=== PATIENT | male | born 2000 | race Hispanic/Latino ===

== ENCOUNTER 2024-12-01 03:27 | Emergency (ER) | payer OTHER ==
[~2024-12-01] VITALS: Ht 182.9 cm; Wt 124.7 kg
[2024-12-01 03:35] VITALS: TEMP 98.1
[2024-12-01] MEDS: KETOROLAC TROMETHAMINE 30 MG/ML VIAL IV STA (03:51)
[2024-12-01] MEDS: DICYCLOMINE HCL 20 MG/2 ML VIAL IM ONE (03:51)
[2024-12-01] MEDS: ONDANSETRON HCL INJ 2MG/ML 2ML 2 MG/ML VIAL IV STA (03:51)
[2024-12-01] MEDS: SODIUM CHLORIDE 0.9% 1000ML 1,000 ML IV ONE (03:52)
[2024-12-01 03:53] LABS: BASOPHILS % 0.6 % (0.0-1.0); EOSINOPHILS # (AUTO) 0.1 (0.0-0.4); EOSINOPHILS % 1.4 % (0.0-6.0); HEMATOCRIT 47.5 % (38.2-49.6); HEMOGLOBIN 16.2 g/dL (14.0-18.0); LYMPHOCYTES % 47.8 % (18.0-39.1); MEAN CORPUSCULAR HEMOGLOBIN 30.5 pg (28-32); MEAN CORPUSCULAR HGB CONC 34.1 g/dL (31-35); MEAN CORPUSCULAR VOLUME 89.5 fL (81-99); MONOCYTES # (AUTO) 0.5 (0.2-0.8); MONOCYTES % 8.2 % (4.4-11.3); NEUTROPHILS # (AUTO) 2.6 (2.1-6.9); NEUTROPHILS % 41.7 % (38.7-80.0); PLATELET COUNT 266 x10e3/uL (140-360); RED BLOOD COUNT 5.31 x10e6/uL (4.3-5.7); WHITE BLOOD COUNT 6.32 x10e3/uL (4.8-10.8)
[2024-12-01 04:07] VITALS: PULSE 78; RESP 18
[2024-12-01 04:18] LABS: ALBUMIN 4.2 g/dL (3.5-5.0); ALBUMIN/GLOBULIN RATIO 1.4 (0.8-2.0); ANION GAP 15.1 mmol/L (8-16); BILIRUBIN,TOTAL 0.5 mg/dL (0.2-1.2); CALCIUM 9.2 mg/dL (8.4-10.2); CREATININE, SERUM 0.65 mg/dL (0.72-1.25); POTASSIUM 4.1 mmol/L (3.5-5.1); TOTAL PROTEIN 7.2 g/dL (6.5-8.1)
[2024-12-01 04:24] LABS: CLARITY,URINE CLOUDY (CLEAR); COLOR,URINE YELLOW (YELLOW); PH,URINE 5.5 (5 - 7)
[2024-12-01 04:25] LABS: BILIRUBIN,URINE NEGATIVE (NEGATIVE); GLUCOSE, URINE NEGATIVE (NEGATIVE); KETONES,URINE NEGATIVE (NEGATIVE); LEUKOCYTE ESTERASE ,URINE NEGATIVE (NEGATIVE); NITRITE,URINE NEGATIVE (NEGATIVE); PROTEIN,URINE DIPSTICK 1+ (NEGATIVE); URINE UROBILINOGEN 0.2 mg/dL (0.2 - 1)
[2024-12-01 04:30] LABS: BACTERIA,URINE MODERATE /HPF; EPITHELIAL CELLS,URINE FEW /LPF; MUCUS,URINE MANY (RARE); RBC,URINE 0-5 /HPF (0-5); WBC,URINE (MAN) 0-5 /HPF (0-5)
[2024-12-01] MEDS ORDERED: PANTOPRAZOLE SO40 MG PO (05:25)
[2024-12-01] MEDS ORDERED: ONDANSETRON ODT4 MG SL (05:25)
[2024-12-01] MEDS ORDERED: DICYCLOMINE HCL20 MG PO (05:25)
[2024-12-01 05:27] VITALS: BP 147/96; PULSE 78; RESP 19; TEMP 97.8; O2SAT 100
== END 2024-12-01 05:40 | disposition home or self-care (01) ==
LOC: ER 03:30
DX: R10.11 Right upper quadrant pain (principal); K80.20 Calculus of gallbladder without cholecystitis without obstruction; I10 Essential (primary) hypertension; F41.9 Anxiety disorder, unspecified; F32.A Depression, unspecified
CPT/HCPCS: 36415; 76705; 80053; 81001; 83690; 85025; 99284; J0500; J1885; J2405; J2470; J7030

== ENCOUNTER 2024-12-07 03:22 | Inpatient (IN) | payer OTHER ==
[~2024-12-07] VITALS: Ht 182.9 cm; Wt 124.7 kg
[2024-12-07] VITALS (8 sets, daily range): BP systolic 146–167; BP diastolic 88–97; PULSE 76–81; RESP 18–21; TEMP 97.5–98.6; O2SAT 97–100
[~2024-12-07 03:22] MED LIST: DICYCLOMINE HCL20 MG PO; ONDANSETRON ODT4 MG SL; PANTOPRAZOLE SO40 MG PO
[2024-12-07] MEDS: SODIUM CHLORIDE 0.9% 1000ML 1,000 ML IV STA (03:56)
[2024-12-07] MEDS: ONDANSETRON HCL INJ 2MG/ML 2ML 2 MG/ML VIAL IV STA (03:56)
[2024-12-07 04:32] LABS: BASOPHILS % 0.6 % (0.0-1.0); EOSINOPHILS % 0.6 % (0.0-6.0); HEMATOCRIT 46.2 % (38.2-49.6); HEMOGLOBIN 15.8 g/dL (14.0-18.0); LYMPHOCYTES # (AUTO) 2.6 (1.0-3.2); LYMPHOCYTES % 37.2 % (18.0-39.1); MEAN CORPUSCULAR HEMOGLOBIN 29.9 pg (28-32); MEAN CORPUSCULAR HGB CONC 34.2 g/dL (31-35); MEAN CORPUSCULAR VOLUME 87.5 fL (81-99); MONOCYTES # (AUTO) 0.5 (0.2-0.8); MONOCYTES % 7.9 % (4.4-11.3); NEUTROPHILS # (AUTO) 3.7 (2.1-6.9); NEUTROPHILS % 53.6 % (38.7-80.0); PLATELET COUNT 249 x10e3/uL (140-360); RED BLOOD COUNT 5.28 x10e6/uL (4.3-5.7); RED CELL DISTRIBUTION WIDTH 13.1 % (11.7-14.4); WHITE BLOOD COUNT 6.86 x10e3/uL (4.8-10.8)
[2024-12-07 04:46] LABS: ALBUMIN 4.4 g/dL (3.5-5.0); ALBUMIN/GLOBULIN RATIO 1.4 (0.8-2.0); ANION GAP 15.8 mmol/L (8-16); BILIRUBIN,TOTAL 0.4 mg/dL (0.2-1.2); CALCIUM 8.8 mg/dL (8.4-10.2); CREATININE, SERUM 0.78 mg/dL (0.72-1.25); POTASSIUM 3.8 mmol/L (3.5-5.1); TOTAL PROTEIN 7.6 g/dL (6.5-8.1)
[2024-12-07] MEDS: Morphine 4mg INJECTION 4 MG/ML INJ IV ONE (05:07)
[2024-12-07] MEDS ORDERED: IOPAMIDOL 370 MG/ML 100 ML INFUS..BTL INJ ONE (05:33)
[2024-12-07] MEDS: SODIUM CHLORIDE 0.9% 1000ML 1,000 ML IV SCH (06:25)
[2024-12-07] MEDS: Morphine 4mg INJECTION 4 MG/ML INJ IV PRN (06:35)
[2024-12-07 06:37] LABS: BILIRUBIN,URINE NEGATIVE (NEGATIVE); CLARITY,URINE CLEAR (CLEAR); COLOR,URINE YELLOW (YELLOW); GLUCOSE, URINE NEGATIVE (NEGATIVE); KETONES,URINE NEGATIVE (NEGATIVE); LEUKOCYTE ESTERASE ,URINE NEGATIVE (NEGATIVE); NITRITE,URINE NEGATIVE (NEGATIVE); PH,URINE 6 (5 - 7); PROTEIN,URINE DIPSTICK 1+ (NEGATIVE); URINE UROBILINOGEN 0.2 mg/dL (0.2 - 1)
[2024-12-07 06:48] LABS: BACTERIA,URINE MODERATE /HPF; EPITHELIAL CELLS,URINE RARE /LPF; RBC,URINE 0-5 /HPF (0-5); WBC,URINE (MAN) 0-5 /HPF (0-5)
[2024-12-07] MEDS: HYDROMORPHONE 1MG/1ML INJ IV PRN (08:56)
[2024-12-07] MEDS: ONDANSETRON HCL INJ 2MG/ML 2ML 2 MG/ML VIAL IV PRN (08:56)
[2024-12-07] MEDS: HYDROCHLOROTHIAZIDE 25 MG TAB PO SCH (16:30)
[2024-12-07] MEDS: LOSARTAN POTASSIUM 25 MG TAB PO SCH (16:30)
[2024-12-07] MEDS: FAMOTIDINE 20 MG TAB PO SCH (17:00)
[2024-12-07] MEDS ORDERED: LISINOPRIL10 MG PO (18:18)
[2024-12-08] VITALS (8 sets, daily range): BP systolic 126–152; BP diastolic 74–96; PULSE 91–108; RESP 18–20; TEMP 98–98.6; O2SAT 96–99
[2024-12-08 05:05] LABS: BASOPHILS % 0.4 % (0.0-1.0); EOSINOPHILS % 0.5 % (0.0-6.0); HEMATOCRIT 44.5 % (38.2-49.6); HEMOGLOBIN 15.1 g/dL (14.0-18.0); LYMPHOCYTES # (AUTO) 1.9 (1.0-3.2); LYMPHOCYTES % 24.5 % (18.0-39.1); MEAN CORPUSCULAR HEMOGLOBIN 29.9 pg (28-32); MEAN CORPUSCULAR HGB CONC 33.9 g/dL (31-35); MEAN CORPUSCULAR VOLUME 88.1 fL (81-99); MONOCYTES # (AUTO) 0.8 (0.2-0.8); MONOCYTES % 10.3 % (4.4-11.3); NEUTROPHILS # (AUTO) 4.8 (2.1-6.9); PLATELET COUNT 217 x10e3/uL (140-360); RED BLOOD COUNT 5.05 x10e6/uL (4.3-5.7); RED CELL DISTRIBUTION WIDTH 13.1 % (11.7-14.4); WHITE BLOOD COUNT 7.54 x10e3/uL (4.8-10.8)
[2024-12-08 05:33] LABS: ALBUMIN 3.9 g/dL (3.5-5.0); ALBUMIN/GLOBULIN RATIO 1.5 (0.8-2.0); ANION GAP 14.4 mmol/L (8-16); BILIRUBIN,TOTAL 1.2 mg/dL (0.2-1.2); CREATININE, SERUM 0.74 mg/dL (0.72-1.25); POTASSIUM 4.4 mmol/L (3.5-5.1); TOTAL PROTEIN 6.5 g/dL (6.5-8.1)
[2024-12-08] MEDS ORDERED: PROPOFOL IV EMULSION 10 MG/ML 20 ML VIAL ONE ×2 (13:34)
[2024-12-08] MEDS ORDERED: LIDOCAINE HCL 2% LOCAL INJ 5 ML SDV VIAL INJ ONE (13:34)
[2024-12-08] MEDS ORDERED: SUCCINYLCHOLINE CHLORIDE 20 MG/ML 10ML VIAL ONE (13:34)
[2024-12-08] MEDS ORDERED: ROCURONIUM BROMIDE 1 ML IV ONE ×3 (13:34→14:52)
[2024-12-08] MEDS ORDERED: MIDAZOLAM HCL 2 MG/2 ML VIAL ONE (13:35)
[2024-12-08] MEDS ORDERED: FENTANYL CITRATE/PF 100MCG/2 ML INJ ONE ×3 (13:35→15:21)
[2024-12-08] MEDS ORDERED: DEXAMETHASONE SOD PHOS INJ 4 MG/ML SDV ONE (14:06)
[2024-12-08] MEDS ORDERED: ONDANSETRON HCL INJ 2MG/ML 2ML 2 MG/ML VIAL ONE (14:06)
[2024-12-08] MEDS ORDERED: FAMOTIDINE 20 MG/2 ML VIAL IV ONE (14:06)
[2024-12-08] MEDS ORDERED: ACETAMINOPHEN 1000 MG/100 ML 100 ML IV ONE (14:11)
[2024-12-08] MEDS ORDERED: PHENYLEPHRINE HCL 1% 10 MG/ML VIAL ONE (14:21)
[2024-12-08] MEDS ORDERED: SUGAMMADEX SODIUM 200 MG/2 ML VIAL IV ONE (14:31)
[2024-12-08] MEDS ORDERED: KETOROLAC TROMETHAMINE 30 MG/ML VIAL IV PRN (15:30)
[2024-12-08] MEDS: HYDROCODONE/APAP 7.5MG-325MG 1 EA TAB PO PRN (17:38)
[2024-12-09] VITALS: BP 126/64; PULSE 94; RESP 18; TEMP 98.4; O2SAT 96
[2024-12-09 08:00] VITALS: BP 130/78; PULSE 94; RESP 20; TEMP 98.3; O2SAT 97
[2024-12-09 08:56] VITALS: BP 130/78; PULSE 94; RESP 18; TEMP 98.3; O2SAT 97
[2024-12-09 12:23] VITALS: BP 129/69; PULSE 92; RESP 19; TEMP 98.2; O2SAT 97
[2024-12-09] MEDS ORDERED: LEVOFLOXACIN250 MG PO (12:54)
== END 2024-12-09 15:30 | disposition home or self-care (01) | DRG 419 ==
LOC: ER 03:29 → ERHOLD 05:59 → MED/SURG 07:38
PROVIDERS: ADMIT Internal Medicine; ATTEND Internal Medicine
PROC: 0FT44ZZ Resection of Gallbladder, Percutaneous Endoscopic Approach (ICD-10-PCS; principal; 2024-12-08 11:00)
DX: K80.62 Calculus of gallbladder and bile duct with acute cholecystitis without obstruction (principal); I10 Essential (primary) hypertension
CPT/HCPCS: 36415; 74177; 80053; 81001; 83690; 85025; 88304; 99284; C1766; J0330; J1100; J1171; J2003; J2250; J2270; J2371; J2405; J2543; J7030; Q9967